=== PATIENT | male | born 1965 | race African-American/Black ===

== ENCOUNTER 2019-11-29 13:02 | Observation (INO) | payer OTHER ==
[~2019-11-29] VITALS: Ht 167.6 cm; Wt 81.7 kg
[2019-11-29 13:14] LABS: BASOPHILS % (AUTO) 0.5 % (0.0-5.0); EOSINOPHILS % (AUTO) 5.2 % (0.0-8.0); HEMATOCRIT 40.2 % (42-54); LYMPHOCYTES % (AUTO) 53.6 % (21.0-51.0); MEAN CORPUSCULAR HEMOGLOBIN 25.9 pg (27.0-33.0); MEAN CORPUSCULAR HGB CONC 32.6 g/dL (32.0-36.0); MEAN CORPUSCULAR VOLUME 79.6 fL (79-99); MONOCYTES % (AUTO) 10.2 % (3.0-13.0); NEUTROPHILS % (AUTO) 30.3 % (40.0-77.0); PLATELET COUNT (AUTO) 182 K/uL (130-400); RED BLOOD CELL COUNT(AUTO) 5.05 MIL/uL (4.50-6.20); RED CELL DISTRIBUTION WIDTH 15.2 % (11.0-15.5); WHITE BLOOD COUNT (AUTO) 4.4 K/uL (4.8-10.8)
[2019-11-29] MEDS ORDERED: ASPIRIN 325 MG TABLET ONE (13:15)
[2019-11-29 13:26] LABS: ALBUMIN 3.7 g/dL (3.5-5.0); BILIRUBIN,TOTAL 0.7 mg/dL (0.2-1.0); TOTAL PROTEIN, SERUM 7.5 g/dL (6.0-8.3)
[2019-11-29 13:30] LABS: INR 1.03 (0.85-1.15); PARTIAL THROMBOPLASTIN TIME 22.9 SEC (26.3-35.5); PROTHROMBIN TIME 10.8 SEC (9.6-11.6)
[2019-11-29 13:56] LABS: AMPHET/METH SCREEN,URINE NEGATIVE (NEGATIVE); BARBITURATE SCREEN, URINE NEGATIVE (NEGATIVE); BENZODIAZEPINES SCREEN,URINE NEGATIVE (NEGATIVE); CANNABINOID SCREEN,URINE NEGATIVE (NEGATIVE); COCAINE SCREEN,URINE NEGATIVE (NEGATIVE); OPIATE SCREEN,URINE NEGATIVE (NEGATIVE); PHENCYCLIDINE SCREEN,URINE NEGATIVE (NEGATIVE)
[2019-11-29] MEDS ORDERED: ACETAMINOPHEN-CODEINE 300/30MG TAB PO PRN (16:00)
[2019-11-29] MEDS ORDERED: ONDANSETRON HCL 4 MG/2 ML VIAL IVP PRN (16:45)
[2019-11-29] MEDS ORDERED: ACETAMINOPHEN 325 MG TAB PO PRN (16:45)
[2019-11-29] MEDS ORDERED: AMLODIPINE BESYLATE 5 MG TAB PO SCH (21:00)
[2019-11-30] MEDS ORDERED: ENOXAPARIN SODIUM 40 MG/0.4 ML SYRINGE SQ SCH (09:00)
[2019-11-30] MEDS ORDERED: HYDROCHLOROTHIAZIDE 25 MG TABLET PO SCH (09:00)
[2019-11-30] MEDS ORDERED: ATORVASTATIN CALCIUM 10 MG TABLET PO SCH (09:00)
== END 2019-11-29 20:47 | disposition home or self-care (01) ==
LOC: EDH 13:02 → EDHIP 14:57
PROVIDERS: ADMIT Internal Medicine; ATTEND Internal Medicine
DX: R94.31 Abnormal electrocardiogram [ECG] [EKG] (principal); E78.5 Hyperlipidemia, unspecified; I10 Essential (primary) hypertension; Z90.49 Acquired absence of other specified parts of digestive tract
CPT/HCPCS: 36415; 71045; 80053; 80305; 82550; 84484; 85025; 85610; 85730; 93005; 99285; G0378 ×5

== ENCOUNTER 2019-12-15 11:00 | Inpatient (IN) | payer OTHER ==
[2019-12-12 10:55] LABS: EOSINOPHILS % (AUTO) 8.5 % (0.0-8.0); MEAN CORPUSCULAR HEMOGLOBIN 26.1 pg (27.0-33.0); MEAN CORPUSCULAR HGB CONC 32.1 g/dL (32.0-36.0); MEAN CORPUSCULAR VOLUME 81.3 fL (79-99); MONOCYTES % (AUTO) 11.6 % (3.0-13.0); NEUTROPHILS % (AUTO) 22.9 % (40.0-77.0); PLATELET COUNT (AUTO) 192 K/uL (130-400); RED BLOOD CELL COUNT(AUTO) 5.29 MIL/uL (4.50-6.20); RED CELL DISTRIBUTION WIDTH 14.6 % (11.0-15.5); WHITE BLOOD COUNT (AUTO) 3.9 K/uL (4.8-10.8)
[2019-12-12 11:00] VITALS: BP 111/70
[2019-12-12 11:01] LABS: APPEARANCE,URINE CLEAR (CLEAR); BILIRUBIN,URINE NEGATIVE (NEGATIVE); COLOR,URINE YELLOW (YELLOW); GLUCOSE, URINE (UA) NEGATIVE (NEGATIVE); KETONES,URINE NEGATIVE (NEGATIVE); LEUKOCYTE ESTERASE ,URINE NEGATIVE (NEGATIVE); NITRATE,URINE NEGATIVE (NEGATIVE); OCCULT BLOOD,URINE NEGATIVE (NEGATIVE); PROTEIN,URINE NEGATIVE (NEGATIVE); UROBILINOGEN,URINE 0.2 mg/dL (0.2-1.0)
[2019-12-12 11:03] LABS: POTASSIUM 4.2 mmol/L (3.5-5.1)
[2019-12-12 11:33] LABS: INR 0.95 (0.85-1.15); PROTHROMBIN TIME 10.3 SEC (9.6-11.6)
[~2019-12-15] VITALS: Ht 167.6 cm; Wt 84.5 kg
[~2019-12-15 11:00] MED LIST: AMLO10TA7 PO; ATOR20TA65 PO; HYDR25TA PO
[2019-12-18] VITALS (22 sets, daily range): BP systolic 103–125; BP diastolic 54–74
--- NOTE | 2019-12-18 12:20 | NUR ---
POTENTIAL FOR INFECTION: SHAVED RIGHT HIP TO RT GROIN TO ABOVE KNEE LEVEL PER ALISON BRYAN, FOLLOWED BY WIPING WITH MALKA: 2% CHLORHEXIDINE GLUCONATE CLOTH PATIENTS PRE-OP SKIN PREP.
[2019-12-18] MEDS ORDERED: TRANEXAMIC ACID 1000MG/10ML ONE ×2 (12:26→12:53)
[2019-12-18] MEDS ORDERED: CEFAZOLIN SODIUM 1 GM VIAL ONE (12:26)
[2019-12-18] MEDS: CEFAZOLIN SODIUM 1 GM VIAL IVP SCH ×3 (12:30→22:30)
[2019-12-18] MEDS ORDERED: LACTATED RINGERS 1000ML 1,000 ML IV ONE (12:40)
[2019-12-18] MEDS ORDERED: CELECOXIB 200 MG CAP ONE (12:51)
[2019-12-18] MEDS ORDERED: METOCLOPRAMIDE 10 MG/2 ML VIAL ONE (12:51)
[2019-12-18] MEDS ORDERED: KETOROLAC TROMETHAMINE 15MG/ML ONE (12:51)
[2019-12-18] MEDS ORDERED: OXYCODONE HCL 10 MG TAB.SR.12H PO ONE (12:52)
[2019-12-18] MEDS ORDERED: ROPIVACAINE 0.5% 5MG/ML 30ML IJ ONE (12:53)
[2019-12-18] MEDS ORDERED: ACETAMINOPHEN EXTRA STRENGTH 500 MG TABLET ONE (12:54)
[2019-12-18] MEDS ORDERED: LIDOCAINE PF 2% 5ML ABBOJECT ONE (12:55)
[2019-12-18] MEDS ORDERED: MIDAZOLAM HCL 1 MG/ML 2ML VIAL ONE (12:56)
[2019-12-18] MEDS ORDERED: FENTANYL CITRATE PF 50 MCG/1 ML 2ML VIAL ONE (12:56)
[2019-12-18] MEDS ORDERED: ROCURONIUM 10MG/1ML SYR 10 MG/ML ML ONE ×2 (12:56→14:06)
[2019-12-18] MEDS ORDERED: PROPOFOL 10 MG/ML 20ML VIAL IV ONE (12:56)
[2019-12-18] MEDS ORDERED: EPHEDRINE SULFATE 50 MG/ML AMPULE ONE (13:53)
[2019-12-18] MEDS ORDERED: NEOSTIGMINE 5MG/5ML SYR IV ONE (13:55)
[2019-12-18] MEDS ORDERED: GLYCOPYRROLATE 1 MG/5 ML SYRINGE ONE (13:55)
[2019-12-18] MEDS ORDERED: ONDANSETRON HCL 4 MG/2 ML VIAL ONE (13:56)
[2019-12-18] MEDS ORDERED: [UNRECOGNIZED DRUG - OTHER] PO (15:04)
[2019-12-18] MEDS ORDERED: ONDANSETRON HCL 4 MG/2 ML VIAL IVP PRN (17:00)
[2019-12-18] MEDS ORDERED: POTASSIUM CHLORIDE 20MEQ/100ML 100 ML IV PRN (17:00)
[2019-12-18] MEDS ORDERED: TRAMADOL HCL 50 MG TABLET PO PRN (17:00)
[2019-12-18] MEDS ORDERED: LIDOCAINE HCL-MPF 1% 2ML VIAL IV PRN (17:00)
[2019-12-18] MEDS ORDERED: TEMAZEPAM 15 MG CAPSULE PO PRN (17:00)
[2019-12-18] MEDS ORDERED: OXYCODONE HCL 5 MG TAB PO PRN (17:00)
[2019-12-18] MEDS: ACETAMINOPHEN EXTRA STRENGTH 500 MG TABLET PO SCH (17:00)
[2019-12-18] MEDS ORDERED: POTASSIUM CHLORIDE 10% ELIXIR 20 MEQ/15 ML UDCUP PO PRN (17:00)
[2019-12-18] MEDS ORDERED: FERROUS FUMARATE 324 MG TABLET PO PRN (17:00)
[2019-12-18] MEDS ORDERED: DiphenhydrAMINE HCL 50 MG/ML VIAL IVP PRN (17:00)
[2019-12-18] MEDS ORDERED: KETOROLAC TROMETHAMINE 15MG/ML IV PRN (17:00)
--- NOTE | 2019-12-18 19:30 | NUR ---
PATIENT RECEIVED IN BED, AAOX3, S/P LEFT MARIA ELENA. DRESSING TO LEFT HIP IS D/I WITH KIMBERLY DRESSING FLASHING GREEN. DISTAL PULSES STRONG TO PALPATION. POC DISCUSSED WITH PATIENT. CALL RUCKER PLACED WITHIN REACH INSTRUCTED TO CALL FOR ASSISTANCE IF NEEDED. PT VOICED AGREEMENT. WILL CONT TO MONITOR CLOSELY.
[2019-12-18] MEDS: AMLODIPINE BESYLATE 2.5 MG TAB PO SCH (20:25)
[2019-12-18] MEDS: CELECOXIB 200 MG CAP PO SCH (20:26)
[2019-12-18] MEDS: ASPIRIN 81MG TAB.CHEW PO SCH (20:26)
[2019-12-18] MEDS: PREGABALIN 25 MG CAP PO SCH (20:26)
[2019-12-18] MEDS: FAMOTIDINE 20MG TAB 20 MG TAB PO SCH (21:00)
[2019-12-18] MEDS ORDERED: INSULIN HUMULIN R 100 UNIT/ML 3ML SQ SCH (21:00)
[2019-12-19] MEDS: ACETAMINOPHEN EXTRA STRENGTH 500 MG TABLET PO SCH ×3 (00:41→16:42)
[2019-12-19] MEDS: SODIUM CHLORIDE 0.9% 1000ML 1,000 ML IV SCH ×2 (02:46→09:23)
[2019-12-19 03:39] VITALS: BP 116/71
[2019-12-19 05:21] LABS: HEMATOCRIT 29.5 % (42-54); MEAN CORPUSCULAR HEMOGLOBIN 26.2 pg (27.0-33.0); MEAN CORPUSCULAR HGB CONC 32.5 g/dL (32.0-36.0); MEAN CORPUSCULAR VOLUME 80.4 fL (79-99); PLATELET COUNT (AUTO) 141 K/uL (130-400); RED BLOOD CELL COUNT(AUTO) 3.67 MIL/uL (4.50-6.20); RED CELL DISTRIBUTION WIDTH 14.7 % (11.0-15.5); WHITE BLOOD COUNT (AUTO) 6.5 K/uL (4.8-10.8)
[2019-12-19 05:44] LABS: CREATININE 0.9 mg/dL (0.5-1.5); POTASSIUM 3.4 mmol/L (3.5-5.1)
[2019-12-19] MEDS: CEFAZOLIN SODIUM 1 GM VIAL IVP SCH (05:59)
--- NOTE | 2019-12-19 06:30 | NUR ---
ACTIVITY PATIENT ABLE TO DANGLE LEGS WITH OUT C/O PAIN. TOLERATING WELL, WANTING TO SIT AT BEDSIDE FOR A WHILE. INSTRUCTED TO CALL FOR ASSISTANCE WHEN HE WANTS TO LAY IN BED.
[2019-12-19] MEDS: CALCIUM CARBONATE 500 MG TABLET PO PRN ×2 (06:59→17:09)
[2019-12-19 07:30] VITALS: BP 106/63
[2019-12-19] MEDS: FAMOTIDINE 20MG TAB 20 MG TAB PO SCH ×2 (09:00→20:39)
[2019-12-19] MEDS ORDERED: HYDROCHLOROTHIAZIDE 25 MG TABLET PO SCH (09:00)
[2019-12-19] MEDS: HYDROCHLOROTHIAZIDE 25 MG TABLET PO SCH (09:00)
[2019-12-19] MEDS: ATORVASTATIN CALCIUM 20 MG TABLET PO SCH (09:00)
[2019-12-19] MEDS: ASPIRIN 81MG TAB.CHEW PO SCH ×2 (09:40→20:36)
[2019-12-19] MEDS: CELECOXIB 200 MG CAP PO SCH ×2 (09:40→20:36)
[2019-12-19] MEDS: POLYETHYLENE GLYCOL 3350 17 GM POWD.PACK PO SCH (09:41)
[2019-12-19] MEDS: TAMSULOSIN HCL 0.4 MG CAP.ER.24H PO SCH (09:41)
[2019-12-19] MEDS: PREGABALIN 25 MG CAP PO SCH ×2 (09:41→20:36)
[2019-12-19 11:00] VITALS: BP 108/57
--- NOTE | 2019-12-19 11:00 | NUR ---
MET WITH PATIENT FOR DC PLANNING. PT IS ACTIVE, YOUNG EMPLOYED INDEPENDENT, HAS ALREADY HAD ONE HIP IN 2006 AND AT THAT TIME RECOVERED AT HOME- HOME SAFE AND ACCESSIBLE, LIVES W SPOUSE YAEL, WILL BE TRANSPORT BY EMS TO [facility] 11/05 [facility]. SUE REC'D AND REFERRAL SENT- FAUSTO HERE TO SEE PATIENT AND [facility]
--- NOTE | 2019-12-19 15:20 | NUR ---
MET WITH PATIENT FOR DC PLANNING. PT IS ACTIVE, YOUNG EMPLOYED INDEPENDENT, HAS ALREADY HAD ONE HIP IN 2006 AND AT THAT TIME RECOVERED AT HOME- HOME SAFE AND ACCESSIBLE, LIVES W SPOUSE YAEL, WILL BE TRANSPORT BY EMS TO [facility] 11/05 [facility]. SUE SRIVASTAVA'Brien AND REFERRAL SENT- FAUSTO HERE TO SEE PATIENT AND SENT REFERRAL TO [place] Addendum: 12/19/19 at 1524 by GERRY MAY RN CM Amended: Links added.
[2019-12-19 16:00] VITALS: BP 119/66
[2019-12-19] MEDS: OXYCODONE HCL 5 MG TAB PO PRN (16:42)
[2019-12-19 19:47] VITALS: BP 114/71
[2019-12-19] MEDS: AMLODIPINE BESYLATE 2.5 MG TAB PO SCH (20:37)
[2019-12-19] MEDS: POTASSIUM CHLORIDE 20 MEQ ERTAB PO PRN ×2 (21:15→23:19)
[2019-12-19 23:21] VITALS: BP 110/63
[2019-12-20] MEDS: ACETAMINOPHEN EXTRA STRENGTH 500 MG TABLET PO SCH ×3 (00:21→17:10)
[2019-12-20] MEDS: OXYCODONE HCL 5 MG TAB PO PRN ×3 (00:22→14:27)
[2019-12-20 03:13] VITALS: BP 101/57
[2019-12-20 05:39] LABS: HEMATOCRIT 28.2 % (42-54)
[2019-12-20 08:00] VITALS: BP 121/73
[2019-12-20] MEDS: PREGABALIN 25 MG CAP PO SCH ×2 (08:07→20:07)
[2019-12-20] MEDS: TAMSULOSIN HCL 0.4 MG CAP.ER.24H PO SCH (08:07)
[2019-12-20] MEDS: ATORVASTATIN CALCIUM 20 MG TABLET PO SCH (08:08)
[2019-12-20] MEDS: CELECOXIB 200 MG CAP PO SCH ×2 (08:08→20:07)
[2019-12-20] MEDS: ASPIRIN 81MG TAB.CHEW PO SCH ×2 (08:09→20:07)
[2019-12-20] MEDS: HYDROCHLOROTHIAZIDE 25 MG TABLET PO SCH (08:09)
[2019-12-20] MEDS: POLYETHYLENE GLYCOL 3350 17 GM POWD.PACK PO SCH (08:10)
[2019-12-20] MEDS: FAMOTIDINE 20MG TAB 20 MG TAB PO SCH ×2 (08:13→19:50)
--- NOTE | 2019-12-20 09:15 | NUR ---
PT NOTE: PATIENT AMBULATED 100FT MIN ASSISTX1 /C 1 STANDING REST BREAK IN-BETWEEN. PATIENT REQUIRES MINIMAL ASSIST FOR SAFE AMBULATION AND TRANSFERS AND REPORTS HIS WILL NOT BE ABLE TO HELP HIM AT HOME. PATIENT WILL BENEFIT FROM REHAB PLACEMENT PRIOR TO D/C HOME FOR STRENGTH AND BALANCE TRAINING, TO PROMOTE FUNCTIONAL INDEPENDENCE AND SAFETY. Addendum: 12/20/19 at 1152 by JOE HENSLEY PT Amended: Links added.
[2019-12-20 11:00] VITALS: BP 112/67
[2019-12-20 16:00] VITALS: BP 115/64
--- NOTE | 2019-12-20 16:49 | NUR ---
ACCEPTED AT [facility] !!! CONTACT DR GARCIA,--- STATES FOR DC TODAY ADVISED PATIENT OF SAME Addendum: 12/20/19 at 1651 by GERRY MAY RN CM Amended: Links added.
--- NOTE | 2019-12-20 16:55 | NUR ---
INITIAL AND REFERRAL MET WITH PATIENT, S/P MARIA ELENA, STATES THIS IS HIS SECOND HIP- IS ACTIVE EMPLOYED NO CURRENT DME, AND DRIVES- [facility], REFERRAL SIGNED FOR VBIP AND MOT/EMS FORMS COMPLETED- REFERRAL EMAILED TO FAUSTO AT [facility] AND PENDING INFO Addendum: 12/20/19 at 1657 by GERRY MAY RN CM Amended: Links added.
--- NOTE | 2019-12-20 18:47 | NUR ---
DISCHARGE INSTRUCTIONS GIVEN AND EXPLAINED UTILIZING TEACH BACK METHOD, PT/ VERBALIZED UNDERSTANDING. REPORT CALLED TO TOBIAS STANLEY RN AT 1815, VERBALIZED UNDERSTANDING. AWARE OF LAST BM SAID WOULD FOLLOW UP. PT REFUSED SUPPOSITORY AT THIS TIME UNTIL ARRIVES AT REHAB. EMS CALLED, SPOKE WITH AKBAR AT 1840. DISCHARGE TO [facility] [phone] GARCIA ON January @ 2:15. Call office for any concerns 26/04 at DIET: -Resume your previous home diet. MEDICATIONS: -Resume your previous home medications if any as instructed by staff. -Please take your prescription medications as instructed. -If you need a prescription refill on your pain medications, please call the doctors office a few days before you take your last pain pill. WOUND CARE: -Nurse to remove your dressing on 12/25/19 and continue daily dressing changes if needed after removing the first removal. -You may shower and get the KIMBERLY dressing wet. Follow nurse instructions to protect dressings battery . ACTIVITY: -Ambulate (walk) as tolerated with the use of crutches or walker until your able to walk independently. -Follow Physical therapist recommendations/instructions. -Gait training with walker and weight bearing as tolerated, advance to cane as per Nurse/Therapist discretion -Do quadriceps strengthening/hamstring stretching exercises to operative leg. -Modalities as per Physical Therapist discretion. -Active & Active assisted Range Of Motion exercises of operated hip. NOTIFY NURSE TO if you have any chest pain/discomfort, shortness of breath/difficulty breathing or as needed.
[2019-12-20 20:00] VITALS: BP 120/74
[2019-12-20] MEDS: AMLODIPINE BESYLATE 2.5 MG TAB PO SCH (20:08)
--- NOTE | 2019-12-20 21:28 | NUR ---
DISCHARGE DISCHARGE TO [facility] VIA EMS, NO C/O PAIN AT THIS TIME
[2019-12-21] MEDS ORDERED: BISACODYL 10 MG SUPP.RECT RC PRN (17:00)
== END 2019-12-20 21:28 | DRG 470 ==
LOC: EDSTATUS 11:00 → EDUNIT# 11:00 → DAHIP 12-18 09:24 → 4AH 12-18 16:53
PROVIDERS: ADMIT Orthopaedic Surgery; ATTEND Orthopaedic Surgery
PROC: 0SRB0JZ Replacement of Left Hip Joint with Synthetic Substitute, Open Approach (ICD-10-PCS; principal; 2019-12-18 14:43)
PROC: 3E0T3BZ Introduction of Anesthetic Agent into Peripheral Nerves and Plexi, Percutaneous Approach (ICD-10-PCS; 2019-12-18 14:43)
DX: M16.12 Unilateral primary osteoarthritis, left hip (principal); Z87.19 Personal history of other diseases of the digestive system; I10 Essential (primary) hypertension; E78.5 Hyperlipidemia, unspecified; M79.2 Neuralgia and neuritis, unspecified; G47.33 Obstructive sleep apnea (adult) (pediatric); D64.9 Anemia, unspecified; Z96.611 Presence of right artificial shoulder joint; Z90.49 Acquired absence of other specified parts of digestive tract
CPT/HCPCS: 36415; 73503; 80048; 81003; 82948; 85014; 85018; 85025; 85027; 85610; 86850; 86900; 86901; 87641; 96360; 96374; 97039; C1776; G0378; J0690; J1885; J2001; J2250; J2405; J2704; J2710; J2765; J2795; J3010; J3490; J7030; J7120